=== PATIENT | female | born 1985 | race Hispanic/Latino ===

== ENCOUNTER → 2019-08-17 | Outpatient (CLI) | payer BC ==
[~2019-08-17] MED LIST: ALBUTEROL SULFATE 2.5 MG/3 ML VIAL NEB ONE
--- NOTE | 2019-08-17 10:46 | RAD ---
EXAM DESCRIPTION: Chest,2 Views CLINICAL HISTORY: 34 years Female, COUGH COMPARISON: None. TECHNIQUE: 2 view radiograph of the chest. IMPRESSION: Normal size cardiac silhouette. Partially calcified aorta. Mild elevation right hemidiaphragm which can accentuate the right basilar markings. Mild perihilar fullness which may represent underlying vascular congestion versus bronchitis. No lobar consolidation. No pleural effusion or pneumothorax. Thoracic spondylosis. Electronically signed by: Jas Brooks MD 08/17/2019 10:45 AM CDT
== END ==
LOC: LAB.O 09:56
PROVIDERS: ATTEND Nurse Practitioner
DX: Z00.00 Encounter for general adult medical examination without abnormal findings (principal); R91.8 Other nonspecific abnormal finding of lung field; J98.4 Other disorders of lung; R05 Cough; M47.894 Other spondylosis, thoracic region; Z13.220 Encounter for screening for lipoid disorders; Z68.34 Body mass index [BMI] 34.0-34.9, adult
CPT/HCPCS: 36415; 71046; 80053; 80061; 83036; 84439; 84443; 85025; 86738; 94060; J7611